=== PATIENT | male | born 1960 | race Caucasian/White ===

== ENCOUNTER 2019-07-17 16:38 | Observation (INO) | payer BC ==
[2019-07-17] MEDS ORDERED: NS 0.9% 1000 ML** 1,000 ML IV ONE (16:59)
[2019-07-17] MEDS ORDERED: Aspirin 81 mg CHEW TAB* 81 MG TAB.CHEW PO ONE (17:15)
[2019-07-17 17:20] LABS: ABS Basophils 0.1 10^3/ul (0-0.2); ABS Eosinophils 0.2 10^3/ul (0-0.6); ABS Lymphocytes 1.3 10^3/ul (1.0-4.8); ABS Neutrophils 7.8 10^3/ul (1.5-7.7); Eosinophil % 1.5 %; Hematocrit 44 % (42-52); Hemoglobin 15.1 g/dL (14.0-18.0); Lymphocyte % 12.5 %; Mean Corpuscular HGB Conc 35 g/dL (31-36); Mean Corpuscular Hemoglobin 31 pg (27-31); Mean Corpuscular Volume 89 fL (80-94); Mean Platelet Volume 9.1 fL (7.4-10.4); Platelet Count 222 10^3/uL (150-450); Red Blood Count 4.92 10^6 /uL (4.18-5.48); Red Cell Distribution Width 14 % (10-15); White Blood Count 10.4 10^3/uL (3.5-10.8)
[2019-07-17 17:38] LABS: Activated Partial Thrombo Time 36.9 seconds (26.0-38.0); Albumin 4.2 g/dL (3.2-5.2); Albumin/Globulin Ratio 1.4 (1-3); BUN/Creatinine Ratio 13.3 (8-20); Calcium 9.2 mg/dL (8.6-10.3); EGFR African American 87.2 (>60); HDL Cholesterol 38.3 mg/dL; INR 1.09 (0.82-1.09); Potassium 3.4 mmol/L (3.5-5.0); Total Bilirubin 0.4 mg/dL (0.2-1.0); Total Protein 7.2 g/dL (6.4-8.9)
[2019-07-17 18:28] LABS: Urine Appearance Clear; Urine Bilirubin Negative (Negative); Urine Blood Negative (Negative); Urine Color Yellow; Urine Glucose Negative (Negative); Urine Ketones Negative (Negative); Urine Nitrite Negative (Negative); Urine Protein Negative (Negative); Urine Specific Gravity 1.006 (1.010-1.030); Urine Urobilinogen Negative (Negative)
[2019-07-17] MEDS ORDERED: Acetaminophen TAB* 325 MG PO PRN (19:19)
[2019-07-17] MEDS ORDERED: Ondansetron INJ* 2 MG/ML VIAL IV PRN (19:19)
[2019-07-17] MEDS ORDERED: Iohexol 350* (CONTRAST) 500 ML MDV IV ONE (19:29)
[2019-07-17] MEDS ORDERED: Potassium Chlor TAB* 20 MEQ TAB.ER PO ONE (19:37)
--- NOTE | 2019-07-17 19:59 | ED ---
Throat Pain/Nasal Congestion - HPI Summary HPI Summary: 59 year old male presents to the ED with a chief complaint of sudden vision blurriness [employer], around 1530 today, 07/17/19. Patient was staring out of a window when everything became a blur. Patient tried to walk to the bathroom but did not make it in time, and suffered urinary incontinence. He denies pain, dizziness, tingling, slurred speech, drooping of face, weakness of extremities, numbness, difficulty ambulating, fever, chills, chest pain, cough, or aphasia. He states that he did not experience blackening of vision, but describes his visual disturbance as if someone was shining a bright, white light in his eyes. At present, he states that he feels that his vision has returned to baseline. PETERSON SANDERS CALLED AT 16:53. Patient has a history of HTN, DM, and HLD. FHx of DM. - History of Current Complaint Chief Complaint: EDEyeProblem Hx Obtained From: Patient Onset/Duration: Sudden Onset, Lasting Minutes, Resolved Severity: Mild Associated Signs And Symptoms: Positive: Negative Cough: None - Allergies/Home Medications Allergies/Adverse Reactions: Allergies Allergy/AdvReac Type Severity Reaction Status Date / Time No Known Allergies Allergy Verified 07/17/19 16:45 Home Medications: Home Medications Losartan TAB* 25 mg PO DAILY 07/17/19 [History Confirmed 07/18/19] Meloxicam 15 mg PO DAILY 07/17/19 [History Confirmed 07/18/19] amLODIPine TAB* 10 tab PO DAILY 07/17/19 [History Confirmed 07/18/19] Multivitamin cap PO DAILY 07/18/19 [History] National Institutes Of Health - NIH Scale Level of Consciousness: Alert/Keenly Responsive Ask Patient the Month and His/Her Age: Both Correct Ask Pt to Open/Close Eyes and Commissary Officer/Release Non-Paretic Hand: Both Correctly Best Gaze (Only Horizontal Eye Movement): Normal Visual Field Testing: No Visual Loss Facial Paresis-Pt to Smile & Close Eyes or Grimace Symmetry: Normal/Symmetrical Motor Function - Right Arm: No Drift-Holds 10 Seconds Motor Function - Left Arm: No Drift-Holds 10 Seconds Motor Function - Right Leg: No Drift-Holds 10 Seconds Motor Function - Left Leg: No Drift-Holds 10 Seconds Limb Ataxia-Must be out of Proportion to Weakness Present: Absent Sensory (Use Pinprick to Test Arms/Legs/Trunk/Face): Normal Best Language (Describe Picture, Name Items): No Aphasia Dysarthria (Read Several Words): Normal Extinction and Inattention: No Abnormality Total Score: 0 PMH/Surg Hx/FS Hx/Imm Hx Cardiovascular History: Reports: Hx Hypertension Sensory History: Denies: Hx Legally Blind, Hx Deafness Opthamlomology History: Denies: Hx Legally Blind EENT History: Denies: Hx Deafness Infectious Disease History: No Infectious Disease History: Denies: Traveled Outside the [place] in Last 30 Days - Family History Known Family History: Positive: Diabetes - Social History Alcohol Use: Weekly Alcohol Amount: 4 lite beers today Substance Use Type: Reports: None Smoking Status (MU): Never Smoked Tobacco Review of Systems Negative: Fever, Chills Positive: Blurred Vision Negative: Chest Pain Negative: Cough Positive: incontinence - urinary Musculoskeletal: Negative - extremity weakness, difficulty ambulating Neurological: Negative - face drooping, dizziness, aphasia Negative: Weakness, Numbness, Syncope, Slurred Speech All Other Systems Reviewed And Are Negative: Yes Physical Exam - Summary Physical Exam Summary: VITAL SIGNS: Reviewed. GENERAL: Patient is a well-developed and nourished male who is lying comfortable in the stretcher.Patient is not in any acute respiratory distress. HEAD AND FACE: No signs of trauma. No ecchymosis, hematomas or skull depressions. No sinus tenderness. EYES: PERRLA, EOMI x 2, No injected conjunctiva, no nystagmus. No photophobia. EARS: Hearing grossly intact. Ear canals and tympanic membranes are within normal limits. MOUTH: Oropharynx within normal limits. NECK: Supple, trachea is midline, no adenopathy, no JVD, no carotid bruit, no c- spine tenderness, neck with full ROM. No meningeal signs, no Kernig's or brudzinskis signs. CHEST: Symmetric, no tenderness at palpation. LUNGS: Clear to auscultation bilaterally. No wheezing or crackles. CVS: Regular rate and rhythm, S1 and S2 present, no murmurs or gallops appreciated. ABDOMEN: Soft, non-tender. No signs of distention. No rebound, no guarding, and no masses palpated. Bowel sounds are normal. EXTREMITIES: FROM in all major joints, no edema, no cyanosis or clubbing. NEURO: Alert and oriented x 3. No acute neurological deficits. Speech is normal and follows commands. NIH = 0 SKIN: Dry and warm. GCS: 15 Triage Information Reviewed: Yes Vital Signs On Initial Exam: Initial Vitals Temp Pulse Resp BP Pulse Ox 97.9 F 68 14 104/56 96 07/17/19 16:42 07/17/19 16:42 07/17/19 16:42 07/17/19 16:42 07/17/19 16:42 Vital Signs Reviewed: Yes - [place] Coma Scale Best Eye Response: 4 - Spontaneous Best Motor Response: 6 - Obeys Commands Best Verbal Response: 5 - Oriented Coma Scale Total: 15 Diagnostics - Vital Signs Vital Signs Temp Pulse Resp BP Pulse Ox 07/17/19 19:26 58 22 113/65 93 07/17/19 19:00 69 26 93 07/17/19 18:00 68 22 94 07/17/19 17:07 54 23 93 07/17/19 16:56 66 23 95 07/17/19 16:42 97.9 F 68 14 104/56 96 - Laboratory Lab Results: Lab Results 07/17/19 07/17/19 07/17/19 Range/Units 16:56 17:14 17:14 WBC 10.4 (3.5-10.8) 10^3/uL RBC 4.92 (4.18-5.48) 10^6 /uL Hgb 15.1 (14.0-18.0) g/dL Hct 44 (42-52) % MCV 89 (80-94) fL MCH 31 (27-31) pg MCHC 35 (31-36) g/dL RDW 14 (10-15) % Plt Count 222 (150-450) 10^3/uL MPV 9.1 (7.4-10.4) fL Neut % (Auto) 75.4 % Lymph % (Auto) 12.5 % [place] % (Auto) 10.0 % Eos % (Auto) 1.5 % Baso % (Auto) 0.6 % Absolute Neuts (auto) 7.8 H (1.5-7.7) 10^3/ul Absolute Lymphs (auto) 1.3 (1.0-4.8) 10^3/ul Absolute Monos (auto) 1.0 H (0-0.8) 10^3/ul Absolute Eos (auto) 0.2 (0-0.6) 10^3/ul Absolute Basos (auto) 0.1 (0-0.2) 10^3/ul Absolute Nucleated RBC 0.0 10^3/ul Nucleated RBC % 0.0 INR (Anticoag Therapy) 1.09 (0.82-1.09) APTT 36.9 (26.0-38.0) seconds Sodium (135-145) mmol/L Potassium (3.5-5.0) mmol/L Chloride (101-111) mmol/L Carbon Dioxide (22-32) mmol/L Anion Gap (2-11) mmol/L BUN (6-24) mg/dL Creatinine (0.67-1.17) mg/dL Est GFR ( Amer) (>60) Est GFR (Non-Af Amer) (>60) BUN/Creatinine Ratio (8-20) Glucose (70-100) mg/dL POC Glucose (mg/dL) 110 H (70-100) mg/dL Lactic Acid (0.5-2.0) mmol/L Calcium (8.6-10.3) mg/dL Total Bilirubin (0.2-1.0) mg/dL AST (13-39) U/L ALT (7-52) U/L Alkaline Phosphatase (34-104) U/L Troponin I (<0.04) ng/mL Total Protein (6.4-8.9) g/dL Albumin (3.2-5.2) g/dL Globulin (2-4) g/dL Albumin/Globulin Ratio (1-3) Triglycerides mg/dL Cholesterol mg/dL LDL Cholesterol mg/dL HDL Cholesterol mg/dL Urine Color Urine Appearance Urine pH (5-9) Ur Specific [place] (1.010-1.030) Urine Protein (Negative) Urine Ketones (Negative) Urine Blood (Negative) Urine Nitrate (Negative) Urine Bilirubin (Negative) Urine Urobilinogen (Negative) Ur Leukocyte Esterase (Negative) Urine Glucose (Negative) Serum Alcohol (<10) mg/dL 07/17/19 07/17/19 07/17/19 Range/Units 17:14 17:14 18:15 WBC (3.5-10.8) 10^3/uL RBC (4.18-5.48) 10^6 /uL Hgb (14.0-18.0) g/dL Hct (42-52) % MCV (80-94) fL MCH (27-31) pg MCHC (31-36) g/dL RDW (10-15) % Plt Count (150-450) 10^3/uL MPV (7.4-10.4) fL Neut % (Auto) % Lymph % (Auto) % [place] % (Auto) % Eos % (Auto) % Baso % (Auto) % Absolute Neuts (auto) (1.5-7.7) 10^3/ul Absolute Lymphs (auto) (1.0-4.8) 10^3/ul Absolute Monos (auto) (0-0.8) 10^3/ul Absolute Eos (auto) (0-0.6) 10^3/ul Absolute Basos (auto) (0-0.2) 10^3/ul Absolute Nucleated RBC 10^3/ul Nucleated RBC % INR (Anticoag Therapy) (0.82-1.09) APTT (26.0-38.0) seconds Sodium 134 L (135-145) mmol/L Potassium 3.4 L (3.5-5.0) mmol/L Chloride 98 L (101-111) mmol/L Carbon Dioxide 27 (22-32) mmol/L Anion Gap 9 (2-11) mmol/L BUN 14 (6-24) mg/dL Creatinine 1.05 (0.67-1.17) mg/dL Est GFR ( Amer) 87.2 (>60) Est GFR (Non-Af Amer) 72.0 (>60) BUN/Creatinine Ratio 13.3 (8-20) Glucose 116 H (70-100) mg/dL POC Glucose (mg/dL) (70-100) mg/dL Lactic Acid 2.3 H* (0.5-2.0) mmol/L Calcium 9.2 (8.6-10.3) mg/dL Total Bilirubin 0.40 (0.2-1.0) mg/dL AST 29 (13-39) U/L ALT 37 (7-52) U/L Alkaline Phosphatase 58 (34-104) U/L Troponin I 0.00 (<0.04) ng/mL Total Protein 7.2 (6.4-8.9) g/dL Albumin 4.2 (3.2-5.2) g/dL Globulin 3.0 (2-4) g/dL Albumin/Globulin Ratio 1.4 (1-3) Triglycerides 124 mg/dL Cholesterol 135 mg/dL LDL Cholesterol 72 mg/dL HDL Cholesterol 38.3 mg/dL Urine Color Yellow Urine Appearance Clear Urine pH 7.0 (5-9) Ur Specific [place] 1.006 L (1.010-1.030) Urine Protein Negative (Negative) Urine Ketones Negative (Negative) Urine Blood Negative (Negative) Urine Nitrate Negative (Negative) Urine Bilirubin Negative (Negative) Urine Urobilinogen Negative (Negative) Ur Leukocyte Esterase Negative (Negative) Urine Glucose Negative (Negative) Serum Alcohol 11 H (<10) mg/dL Result Diagrams: 07/18/19 06:47 07/18/19 06:47 Lab Statement: Any lab studies that have been ordered have been reviewed, and results considered in the medical decision making process. - Radiology CXR Radiology Interpretation Completed By: Radiologist Summary of Radiographic Findings: IMPRESSION: MILD CARDIOMEGALY. NO ACTIVE CARDIOPULMONARY DISEASE. THIS REPORT WAS REVIEWED BY DR. LUZ. - CT BRAIN CT CT Interpretation Completed By: Radiologist Summary of CT Findings: IMPRESSION: NO ACUTE INTRACRANIAL PATHOLOGY. CHRONIC SMALL VESSEL ISCHEMIC CHANGE. PRELIMINARY FINDINGS WERE DISCUSSED WITH DR. LUZ IN THE EMERGENCY DEPARTMENT AT. APPROXIMATELY 5:06 PM ON 2018.. THIS REPORT WAS REVIEWED BY DR. LUZ. - EKG 1656 Cardiac Rate: NL - RATE OF 66 BPM EKG Rhythm: Sinus Rhythm Summary of EKG Findings: EKG showed NSR with rate of 66 BPM, no ST elevations. ED physician has reviewed and interpreted this EKG. EENT Course/Dx - Course Assessment/Plan: Patient is a 59-year-old male who presents to the emergency department with a chief complaint of visual changes and urinary incontinence. Code waters was called by triage. Patient was placed in a glass carrier IV access obtained my NIH score is equal to 0 and GCS is 15. The patient reports that HIS symptoms he had prior to arrival have resolved. Head CT is negative for an acute interconnected pathology. I discussed the case with Dr. Chavez neurologist from [facility], who reports that since the patients symptoms have resolved the patient is not a candidate for TPA. However he recommends aspirin , MRI and echocardiogram. He also recommends a neurological consult. At this time I discussed my physical exam and findings with Dr. Gibson and he also recommends as above and adding and neurochecks. He also recommends for the patient to be admitted to the hospital services. At this time I discussed my physical exam and findings with and Dr. Tran from the hospitalist services who accepted the patient for admission. The patient is hemodynamically stable alert and oriented 3. Blood tests without any significant abnormality except for potassium of 3.4, glucose 116, lactic acid is 2.3. Urinalysis is negative for UTI. Patient was given potassium chloride but in [facility]. Patient is hemodynamically stable. - Diagnoses Provider Diagnoses: TIA (transient ischemic attack) - Provider Notifications Discussed Care Of Patient With: Aidan Chavez - Discussed with Dr. Scott MD, at 1705. Patient is not a candidate for TPA because he's back to normal. He encouraged a TIA workup. Time Discussed With Above Provider: 17:05 Discharge ED - Sign-Out/Discharge Documenting (check all that apply): Patient Departure - admit All imaging exams completed and their final reports reviewed: Yes Patient Received Moderate/Deep Sedation with Procedure: No - Discharge Plan Condition: Stable Disposition: ADMITTED TO [facility] - Billing Disposition and Condition Condition: STABLE Disposition: Admitted to [facility] - Attestation Statements Document Initiated by Bashir: Yes Documenting Scribe: Kalen Vasquez Provider For Whom Bashir is Documenting (Include Credential): Solomon Luz MD Scribe Attestation: IKalen, scribed for Solomon Luz MD on 07/19/19 at 1114. Scribe Documentation Reviewed: Yes Provider Attestation: The documentation as recorded by the Kalen haynes accurately reflects the service I personally performed and the decisions made by me, Solomon Luz MD Status of Scribe Document: Viewed
--- NOTE | 2019-07-17 19:59 | ED ---
Neurological HPI - History of Current Complaint Chief Complaint: EDEyeProblem Stated Complaint: "SUDDEN LOSS OF VISION PER EMS" Pain Intensity: 0 - Allergy/Home Medications Allergies/Adverse Reactions: Allergies Allergy/AdvReac Type Severity Reaction Status Date / Time No Known Allergies Allergy Verified 07/17/19 16:45 Home Medications: Home Medications Losartan TAB* 07/17/19 [History] Meloxicam 07/17/19 [History] amLODIPine TAB* 07/17/19 [History] PMH/Surg Hx/FS Hx/Imm Hx Cardiovascular History: Reports: Hx Hypertension Infectious Disease History: No Infectious Disease History: Denies: Traveled Outside the [place] in Last 30 Days - Social History Alcohol Use: Weekly Alcohol Amount: 4 lite beers today Substance Use Type: Reports: None Smoking Status (MU): Never Smoked Tobacco Physical Exam Vital Signs On Initial Exam: Initial Vitals Temp Pulse Resp BP Pulse Ox 97.9 F 68 14 104/56 96 07/17/19 16:42 07/17/19 16:42 07/17/19 16:42 07/17/19 16:42 07/17/19 16:42 Diagnostics - Vital Signs Vital Signs Temp Pulse Resp BP Pulse Ox 07/17/19 19:26 58 22 113/65 93 07/17/19 19:00 69 26 93 07/17/19 18:00 68 22 94 07/17/19 17:07 54 23 93 07/17/19 16:56 66 23 95 07/17/19 16:42 97.9 F 68 14 104/56 96 - Laboratory Lab Results: Lab Results 07/17/19 07/17/19 07/17/19 Range/Units 16:56 17:14 17:14 WBC 10.4 (3.5-10.8) 10^3/uL RBC 4.92 (4.18-5.48) 10^6 /uL Hgb 15.1 (14.0-18.0) g/dL Hct 44 (42-52) % MCV 89 (80-94) fL MCH 31 (27-31) pg MCHC 35 (31-36) g/dL RDW 14 (10-15) % Plt Count 222 (150-450) 10^3/uL MPV 9.1 (7.4-10.4) fL Neut % (Auto) 75.4 % Lymph % (Auto) 12.5 % [place] % (Auto) 10.0 % Eos % (Auto) 1.5 % Baso % (Auto) 0.6 % Absolute Neuts (auto) 7.8 H (1.5-7.7) 10^3/ul Absolute Lymphs (auto) 1.3 (1.0-4.8) 10^3/ul Absolute Monos (auto) 1.0 H (0-0.8) 10^3/ul Absolute Eos (auto) 0.2 (0-0.6) 10^3/ul Absolute Basos (auto) 0.1 (0-0.2) 10^3/ul Absolute Nucleated RBC 0.0 10^3/ul Nucleated RBC % 0.0 INR (Anticoag Therapy) 1.09 (0.82-1.09) APTT 36.9 (26.0-38.0) seconds Sodium (135-145) mmol/L Potassium (3.5-5.0) mmol/L Chloride (101-111) mmol/L Carbon Dioxide (22-32) mmol/L Anion Gap (2-11) mmol/L BUN (6-24) mg/dL Creatinine (0.67-1.17) mg/dL Est GFR ( Amer) (>60) Est GFR (Non-Af Amer) (>60) BUN/Creatinine Ratio (8-20) Glucose (70-100) mg/dL POC Glucose (mg/dL) 110 H (70-100) mg/dL Lactic Acid (0.5-2.0) mmol/L Calcium (8.6-10.3) mg/dL Total Bilirubin (0.2-1.0) mg/dL AST (13-39) U/L ALT (7-52) U/L Alkaline Phosphatase (34-104) U/L Troponin I (<0.04) ng/mL Total Protein (6.4-8.9) g/dL Albumin (3.2-5.2) g/dL Globulin (2-4) g/dL Albumin/Globulin Ratio (1-3) Triglycerides mg/dL Cholesterol mg/dL LDL Cholesterol mg/dL HDL Cholesterol mg/dL Urine Color Urine Appearance Urine pH (5-9) Ur Specific [place] (1.010-1.030) Urine Protein (Negative) Urine Ketones (Negative) Urine Blood (Negative) Urine Nitrate (Negative) Urine Bilirubin (Negative) Urine Urobilinogen (Negative) Ur Leukocyte Esterase (Negative) Urine Glucose (Negative) Serum Alcohol (<10) mg/dL 07/17/19 07/17/19 07/17/19 Range/Units 17:14 17:14 18:15 WBC (3.5-10.8) 10^3/uL RBC (4.18-5.48) 10^6 /uL Hgb (14.0-18.0) g/dL Hct (42-52) % MCV (80-94) fL MCH (27-31) pg MCHC (31-36) g/dL RDW (10-15) % Plt Count (150-450) 10^3/uL MPV (7.4-10.4) fL Neut % (Auto) % Lymph % (Auto) % [place] % (Auto) % Eos % (Auto) % Baso % (Auto) % Absolute Neuts (auto) (1.5-7.7) 10^3/ul Absolute Lymphs (auto) (1.0-4.8) 10^3/ul Absolute Monos (auto) (0-0.8) 10^3/ul Absolute Eos (auto) (0-0.6) 10^3/ul Absolute Basos (auto) (0-0.2) 10^3/ul Absolute Nucleated RBC 10^3/ul Nucleated RBC % INR (Anticoag Therapy) (0.82-1.09) APTT (26.0-38.0) seconds Sodium 134 L (135-145) mmol/L Potassium 3.4 L (3.5-5.0) mmol/L Chloride 98 L (101-111) mmol/L Carbon Dioxide 27 (22-32) mmol/L Anion Gap 9 (2-11) mmol/L BUN 14 (6-24) mg/dL Creatinine 1.05 (0.67-1.17) mg/dL Est GFR ( Amer) 87.2 (>60) Est GFR (Non-Af Amer) 72.0 (>60) BUN/Creatinine Ratio 13.3 (8-20) Glucose 116 H (70-100) mg/dL POC Glucose (mg/dL) (70-100) mg/dL Lactic Acid 2.3 H* (0.5-2.0) mmol/L Calcium 9.2 (8.6-10.3) mg/dL Total Bilirubin 0.40 (0.2-1.0) mg/dL AST 29 (13-39) U/L ALT 37 (7-52) U/L Alkaline Phosphatase 58 (34-104) U/L Troponin I 0.00 (<0.04) ng/mL Total Protein 7.2 (6.4-8.9) g/dL Albumin 4.2 (3.2-5.2) g/dL Globulin 3.0 (2-4) g/dL Albumin/Globulin Ratio 1.4 (1-3) Triglycerides 124 mg/dL Cholesterol 135 mg/dL LDL Cholesterol 72 mg/dL HDL Cholesterol 38.3 mg/dL Urine Color Yellow Urine Appearance Clear Urine pH 7.0 (5-9) Ur Specific [place] 1.006 L (1.010-1.030) Urine Protein Negative (Negative) Urine Ketones Negative (Negative) Urine Blood Negative (Negative) Urine Nitrate Negative (Negative) Urine Bilirubin Negative (Negative) Urine Urobilinogen Negative (Negative) Ur Leukocyte Esterase Negative (Negative) Urine Glucose Negative (Negative) Serum Alcohol 11 H (<10) mg/dL Result Diagrams: 07/17/19 17:14 07/17/19 17:14 Lab Statement: Any lab studies that have been ordered have been reviewed, and results considered in the medical decision making process. NIH Scale - NIH Scale Level of Consciousness: Alert/Keenly Responsive Ask Patient the Month and His/Her Age: Both Correct Ask Pt to Open/Close Eyes and Sanforizing Machine Operator/Release Non-Paretic Hand: Both Correctly Best Gaze (Only Horizontal Eye Movement): Normal Visual Field Testing: No Visual Loss Facial Paresis-Pt to Smile & Close Eyes or Grimace Symmetry: Normal/Symmetrical Motor Function - Right Arm: No Drift-Holds 10 Seconds Motor Function - Left Arm: No Drift-Holds 10 Seconds Motor Function - Right Leg: No Drift-Holds 10 Seconds Motor Function - Left Leg: No Drift-Holds 10 Seconds Limb Ataxia-Must be out of Proportion to Weakness Present: Absent Sensory (Use Pinprick to Test Arms/Legs/Trunk/Face): Normal Best Language (Describe Picture, Name Items): No Aphasia Dysarthria (Read Several Words): Normal Extinction and Inattention: No Abnormality Total Score: 0 Discharge ED - Discharge Plan Referrals: Abdon Aguillon MD [Primary Care Provider] - - Attestation Statements Document Initiated by Scribe: Yes
[2019-07-17 20:21] LABS: Activated Partial Thrombo Time 36.9 seconds (26.0-38.0); INR 1.07 (0.82-1.09)
--- NOTE | 2019-07-17 21:38 | HP ---
CC: Dr. Gibson; Dr. Cannon, [facility] * HISTORY AND PHYSICAL: DATE OF ADMISSION: 07/17/19 PRIMARY CARE PROVIDER: Dr. Cannon from [facility]. ATTENDING PHYSICIAN WHILE IN THE HOSPITAL: Dr. Maddison Shahid * (report dictated by Tristen Hernandez NP) CHIEF COMPLAINT: Visual loss. HISTORY OF PRESENT ILLNESS: Mr. Romano is a 59-year-old male patient with a history of BIGG who does not wear CPAP, history of hypertension and morbid obesity, who comes into our ER today stating that this evening he was entertaining some friends and he had had 4 to 5 beers and he noticed that his eyes started watering and then he noticed that his bilateral vision became blurry to the point where at one point it went white. He tried making it to the bathroom and he was incontinent of urine. He came out of the bathroom. He told his friends what was going on. They were concerned and called 911. He had no other focal deficits with this. He had no trouble with speech, no weakness to one side, no facial drooping, no dizziness or lightheadedness. He had no loss of consciousness. They summoned 911. By the time the ambulance got there, his symptoms were getting better and by the time he got to the hospital, his symptoms were gone. His symptoms lasted about 45 minutes. They came on suddenly and then gradually got worse again with no other focal deficits. He denied any recent medication changes and he states that prior to this, he had no chest pain or shortness of breath, and he said he had no palpitations and that he had been feeling good, but because of the visual changes, a code waters was called and there was concern for possible TIA, and we were asked to evaluate for admission. PAST MEDICAL HISTORY: Significant for: 1. Hypertension. 2. BIGG, not treated. 3. Morbid obesity. PAST SURGICAL HISTORY: He has had an appendectomy. HOME MEDICATIONS: He does not know the dosages and we will have to clarify these. 1. Meloxicam 1 tablet daily. 2. Losartan 1 tablet daily. 3. Amlodipine 1 tablet daily. ALLERGIES TO MEDICATIONS: Include no known drug allergies. FAMILY HISTORY: His mom's history is unknown. Father has a history of diabetes and melanoma. SOCIAL HISTORY: He does chew tobacco. He does have a significant other who would be his surrogate decision maker. He does drink occasionally and socially. REVIEW OF SYSTEMS: There is no documented fever. He denied having any significant weight changes. He has no double vision. He denied having any ear discharge. There is no rhinorrhea, no sore throat, no thyroid enlargement. He denies having any chest pain. There is no orthopnea. There is no nocturnal dyspnea. Denies having any abdominal pain. No dysuria. No frequency. There was no seizure. No loss of consciousness or pruritus. He had no skin ulcerations. Review of 14 systems was completed and all others are negative. PHYSICAL EXAMINATION GENERAL: At this time, Mr. Romano is a 59-year-old male patient. He is sitting on the ED stretcher. He does not appear to be in any acute distress. He is well nourished and well developed. VITAL SIGNS: Blood pressure 104/56, pulse 68, respirations 14, O2 sat 96%, temperature 97.9. HEENT: Head: Atraumatic and normocephalic. Eyes: EOMs are intact. Sclerae anicteric and not pale. Throat: Oral mucosa appears to be moist. No oropharyngeal erythema. NECK: Supple. LUNGS: Clear to auscultation bilaterally. There are no wheezes, rales, or rhonchi. HEART: Sounds S1, S2. Had a regular rate and rhythm. No murmur, rubs, or gallops. ABDOMEN: Soft, flat, nontender. Bowel sounds are present. EXTREMITIES: Pulses were 2+ throughout. He is moving all 4 extremities with 5/ 5 strength. NEUROLOGICAL: He is awake, alert, oriented x3. Speech is clear. Tongue midline. Garnishment Specialist were equal. EOMs were intact. Visual gresham were intact. He had 5/5 strength at the SCM and trapezius bilaterally. He had 5/5 strength in the upper and lower extremities distally and proximally. Reflexes were 1+ at the patella and at the brachioradialis and at the biceps. Sensation was intact. No evidence of neglect. No drift was noted. Again, no focal deficits were noted on my exam at this point. [id number] and [id number] were intact bilaterally. SKIN: Intact. DIAGNOSTIC STUDIES/LAB DATA: Labs; WBC 10.4, RBC 4.92, hemoglobin 15.1, hematocrit 44, platelet count 222. INR was 1.09, PTT of 36.9. Sodium was 134, potassium was 3.4, chloride 98, bicarb 27, BUN 14, creatinine 1.05, glucose 116 , lactic 2.3, calcium 9.2. Total bili 0.4, AST 29, ALT 37, alk phos 58. Troponin 0.00. Albumin 4.2. LDH 72. Urine was obtained, negative. Toxicology pending. He had a brain CT obtained today which revealed no acute intracranial pathology. Chronic small-vessel ischemic change. Chest x-ray showed mild cardiomegaly, no active cardiopulmonary disease. EKG showed normal sinus rhythm, rate of 66, no ST elevation, T-wave inversion noted. Old medical records reviewed. ASSESSMENT AND PLAN: Mr. Romano is a 59-year-old male who carries a history of hypertension and obstructive sleep apnea presenting to the ED today with complaints of loss of vision that eventually did get better. However, there was concern for transient ischemic attack versus possible occipital seizure. He will be admitted under inpatient status for: 1. Transient ischemic attack versus occipital seizure. At this point, his symptoms have resolved. I am going to start him on aspirin. It is odd that he had this white type vision that generally would not be seen with a transient ischemic attack; however, he does have risk factors and I think it is appropriate to get a CTA of the head and neck along with an echo. In addition to this, MRI of the brain. Start him on aspirin and we will get frequent neurological checks and place him on telemetry to monitor for atrial fibrillation. At this point, we could consider an EEG, but this could be done as an outpatient and again, I did order an MRI, echo, and CT of the head and neck with frequent neuro checks and telemetry. 2. Hypertension. I am going to be holding his antihypertensives in the setting of possible transient ischemic attack. 3. DVT prophylaxis. He will be placed on heparin subcu as he is high risk. 4. Code Status. Full code. 5. Fluids, electrolytes, and nutrition: He can have a heart-healthy diet. TIME SPENT: On the admission 60 minutes, greater than half the time was spent face- to-face with the patient obtaining my history and physical. Other half of the time was spent going over the plan of care with the patient and implementing the plan of care. I did discuss the plan of care with my attending, Dr. Shahid; she is in agreement. TRISTEN HERNANDEZ NP [id number]/[facility] #: [id number] TIANA
[2019-07-17] MEDS: Heparin VIAL(*) 5000 UNITS/ML VIAL (FIVE THOUSAND) SUBCUT SCH (22:13)
[2019-07-18] MEDS: Heparin VIAL(*) 5000 UNITS/ML VIAL (FIVE THOUSAND) SUBCUT SCH ×3 (05:57→21:23)
[2019-07-18 07:03] LABS: ABS Eosinophils 0.4 10^3/ul (0-0.6); ABS Lymphocytes 1.9 10^3/ul (1.0-4.8); ABS Monocytes 0.9 10^3/ul (0-0.8); ABS Neutrophils 4.2 10^3/ul (1.5-7.7); Eosinophil % 5.7 %; Hematocrit 43 % (42-52); Hemoglobin 14.6 g/dL (14.0-18.0); Lymphocyte % 25.1 %; Mean Corpuscular HGB Conc 34 g/dL (31-36); Mean Corpuscular Hemoglobin 30 pg (27-31); Mean Corpuscular Volume 90 fL (80-94); Mean Platelet Volume 9.6 fL (7.4-10.4); Nucleated Red Blood Cells % 0.1; Platelet Count 231 10^3/uL (150-450); Red Blood Count 4.81 10^6 /uL (4.18-5.48); Red Cell Distribution Width 15 % (10-15); White Blood Count 7.4 10^3/uL (3.5-10.8)
[2019-07-18 07:08] LABS: INR 1.09 (0.82-1.09)
[2019-07-18 07:18] LABS: BUN/Creatinine Ratio 15.2 (8-20); Calcium 8.9 mg/dL (8.6-10.3); EGFR African American 93.3 (>60); EGFR Non-African American 77.1 (>60); HDL Cholesterol 36.1 mg/dL; Potassium 3.7 mmol/L (3.5-5.0)
[2019-07-18] MEDS: Aspirin 81 mg CHEW TAB* 81 MG TAB.CHEW PO SCH (08:56)
[2019-07-18] MEDS ORDERED: Influenza VAC *QUAD* 2019-20* 0.5 ML SYRINGE IM ONE (09:00)
--- NOTE | 2019-07-18 10:31 | PN ---
Subjective Date of Service: 07/18/19 Interval History: Pt examined today at the bedside. He states that he has not had anymore symptoms. He states that he is feeling well. He denies chest pain and denies shortness of breathe. He states that he has not had any more focal deficits. He denies states he has not had any trouble with speech or facial drooping. ROS-denies fever, denies chills, denies chest pain, denies shortness of breathe , denies abdominal pain, denies nausea, denies vomiting, denies lightheadedness , denies loc, review of 14 systems completed all others negative, Objective Active Medications: Acetaminophen (Tylenol Tab*) 650 mg PO Q4H PRN PRN Reason: PAIN - MILD Aspirin (Aspirin 81 Mg Chew Tab*) 81 mg PO DAILY [facility] Last Admin: 07/18/19 08:56 Dose: 81 mg Atorvastatin Calcium (Lipitor*) 40 mg PO 1700 DC Clopidogrel Bisulfate (Plavix Tab*) 75 mg PO DAILY [facility] Heparin Sodium (Porcine) (Heparin Vial(*)) 5,000 units SUBCUT Q8HR [facility] Last Admin: 07/18/19 05:57 Dose: 5,000 units Ondansetron HCl (Zofran Inj*) 4 mg IV Q6H PRN PRN Reason: NAUSEA Vital Signs - 8 hr 07/18/19 07/18/19 03:14 07:15 Temperature 97.6 F 97.6 F Pulse Rate 52 52 Respiratory 22 16 Rate Blood Pressure 111/69 115/71 (mmHg) O2 Sat by Pulse 92 95 Oximetry Oxygen Devices in Use Now: None Appearance: well nourished well developed, Eyes: No Scleral Icterus Ears/Nose/Mouth/Throat: NL Teeth, Lips, Gums Neck: NL Appearance and Movements; NL JVP Respiratory: Symmetrical Chest Expansion and Respiratory Effort Cardiovascular: NL Sounds; No Murmurs; No JVD Abdominal: NL Sounds; No Tenderness; No Distention Skin: No Rash or Ulcers Neurological: Alert and Oriented x 3, NL Gait, NL Muscle Strength and Tone Lines/Tubes/Other Access: Clean, Dry and Intact Peripheral IV Result Diagrams: 07/18/19 06:47 07/18/19 06:47 Additional Lab and Data: Lab Results 09/28/19 09/28/19 09/28/19 Range/Units 16:56 17:14 17:14 WBC 10.4 (3.5-10.8) 10^3/uL RBC 4.92 (4.18-5.48) 10^6 /uL Hgb 15.1 (14.0-18.0) g/dL Hct 44 (42-52) % MCV 89 (80-94) fL MCH 31 (27-31) pg MCHC 35 (31-36) g/dL RDW 14 (10-15) % Plt Count 222 (150-450) 10^3/uL MPV 9.1 (7.4-10.4) fL Neut % (Auto) 75.4 % Lymph % (Auto) 12.5 % Tyler % (Auto) 10.0 % Eos % (Auto) 1.5 % Baso % (Auto) 0.6 % Absolute Neuts (auto) 7.8 H (1.5-7.7) 10^3/ul Absolute Lymphs (auto) 1.3 (1.0-4.8) 10^3/ul Absolute Monos (auto) 1.0 H (0-0.8) 10^3/ul Absolute Eos (auto) 0.2 (0-0.6) 10^3/ul Absolute Basos (auto) 0.1 (0-0.2) 10^3/ul Absolute Nucleated RBC 0.0 10^3/ul Nucleated RBC % 0.0 INR (Anticoag Therapy) 1.09 (0.82-1.09) APTT 36.9 (26.0-38.0) seconds Sodium (135-145) mmol/L Potassium (3.5-5.0) mmol/L Chloride (101-111) mmol/L Carbon Dioxide (22-32) mmol/L Anion Gap (2-11) mmol/L BUN (6-24) mg/dL Creatinine (0.67-1.17) mg/dL Est GFR ( Amer) (>60) Est GFR (Non-Af Amer) (>60) BUN/Creatinine Ratio (8-20) Glucose (70-100) mg/dL POC Glucose (mg/dL) 110 H (70-100) mg/dL Lactic Acid (0.5-2.0) mmol/L Calcium (8.6-10.3) mg/dL Total Bilirubin (0.2-1.0) mg/dL AST (13-39) U/L ALT (7-52) U/L Alkaline Phosphatase (34-104) U/L Troponin I (<0.04) ng/mL Total Protein (6.4-8.9) g/dL Albumin (3.2-5.2) g/dL Globulin (2-4) g/dL Albumin/Globulin Ratio (1-3) Triglycerides mg/dL Cholesterol mg/dL LDL Cholesterol mg/dL HDL Cholesterol mg/dL Urine Color Urine Appearance Urine pH (5-9) Ur Specific [place] (1.010-1.030) Urine Protein (Negative) Urine Ketones (Negative) Urine Blood (Negative) Urine Nitrate (Negative) Urine Bilirubin (Negative) Urine Urobilinogen (Negative) Ur Leukocyte Esterase (Negative) Urine Glucose (Negative) Serum Alcohol (<10) mg/dL 07/17/19 07/17/19 07/17/19 Range/Units 17:14 17:14 18:15 WBC (3.5-10.8) 10^3/uL RBC (4.18-5.48) 10^6 /uL Hgb (14.0-18.0) g/dL Hct (42-52) % MCV (80-94) fL MCH (27-31) pg MCHC (31-36) g/dL RDW (10-15) % Plt Count (150-450) 10^3/uL MPV (7.4-10.4) fL Neut % (Auto) % Lymph % (Auto) % Tyler % (Auto) % Eos % (Auto) % Baso % (Auto) % Absolute Neuts (auto) (1.5-7.7) 10^3/ul Absolute Lymphs (auto) (1.0-4.8) 10^3/ul Absolute Monos (auto) (0-0.8) 10^3/ul Absolute Eos (auto) (0-0.6) 10^3/ul Absolute Basos (auto) (0-0.2) 10^3/ul Absolute Nucleated RBC 10^3/ul Nucleated RBC % INR (Anticoag Therapy) (0.82-1.09) APTT (26.0-38.0) seconds Sodium 134 L (135-145) mmol/L Potassium 3.4 L (3.5-5.0) mmol/L Chloride 98 L (101-111) mmol/L Carbon Dioxide 27 (22-32) mmol/L Anion Gap 9 (2-11) mmol/L BUN 14 (6-24) mg/dL Creatinine 1.05 (0.67-1.17) mg/dL Est GFR ( Amer) 87.2 (>60) Est GFR (Non-Af Amer) 72.0 (>60) BUN/Creatinine Ratio 13.3 (8-20) Glucose 116 H (70-100) mg/dL POC Glucose (mg/dL) (70-100) mg/dL Lactic Acid 2.3 H* (0.5-2.0) mmol/L Calcium 9.2 (8.6-10.3) mg/dL Total Bilirubin 0.40 (0.2-1.0) mg/dL AST 29 (13-39) U/L ALT 37 (7-52) U/L Alkaline Phosphatase 58 (34-104) U/L Troponin I 0.00 (<0.04) ng/mL Total Protein 7.2 (6.4-8.9) g/dL Albumin 4.2 (3.2-5.2) g/dL Globulin 3.0 (2-4) g/dL Albumin/Globulin Ratio 1.4 (1-3) Triglycerides 124 mg/dL Cholesterol 135 mg/dL LDL Cholesterol 72 mg/dL HDL Cholesterol 38.3 mg/dL Urine Color Yellow Urine Appearance Clear Urine pH 7.0 (5-9) Ur Specific [place] 1.006 L (1.010-1.030) Urine Protein Negative (Negative) Urine Ketones Negative (Negative) Urine Blood Negative (Negative) Urine Nitrate Negative (Negative) Urine Bilirubin Negative (Negative) Urine Urobilinogen Negative (Negative) Ur Leukocyte Esterase Negative (Negative) Urine Glucose Negative (Negative) Serum Alcohol 11 H (<10) mg/dL Assess/Plan/Problems-Billing Assessment: 59 y/o male patient presenting to [facility] with complaints of of bilateral vision loss he was admitted for concerns of TIA - Patient Problems (1) TIA (transient ischemic attack) Current Visit: Yes Status: Acute Priority: High Comment: Echo pending CT brain shows white matter disease EEG pending MRI Pending A1c 5.7 CTA with minimal disease LDL 84 given extensive white matter disease neuro recommends asa and plavix for now and possibly 30 days depending on MRI findings. EEG pending. will place on statin for LDL < 70 goal. recommend wearing CPAP. Etiology is unclear if this represents TIA, Seizure of atypical Mirgraine. Neuro following. (2) Obesities, morbid Current Visit: Yes Status: Acute Priority: High Comment: Supportive care Follow with PCP (3) HTN (hypertension) Current Visit: Yes Status: Acute Priority: High Comment: BP stable holding meds in setting of possible TIA, BP has been stable (4) HLD (hyperlipidemia) Current Visit: Yes Status: Acute Priority: High Comment: Goal LDL less than 70 statin ordered (5) DVT prophylaxis Current Visit: Yes Status: Acute Priority: High Comment: heparin sub-q (6) Full code status Current Visit: Yes Status: Acute Priority: High Status and Disposition: Await MRI report and EEG. Given extensive white matter disease would hold for MRI tomorrow. Continue asa and plavix for now. Hold bp meds for now given concern for possible TIA. continue statin. Anticipate home tomorrow depending on MRI scan and eeg. Neuro following
[2019-07-18] MEDS: Clopidogrel TAB* 75 MG PO SCH (11:00)
[2019-07-18] MEDS ORDERED: Perflutren Lipid Microsphere* 3 ML VIAL ONE (12:55)
--- NOTE | 2019-07-18 13:40 | CONS ---
CONSULTATION REPORT: DATE OF CONSULT: 07/18/19 PATIENT OF: Tristen Hernandez NP, and Dr. Cannon. HISTORY OF PRESENT ILLNESS: This is a 59-year-old right-handed man who has a history of hypertension and morbid obesity as well as obstructive sleep apnea, but does not wear nasal CPAP. He has had no prior migrainous symptoms or headaches. He has had no prior numbness, weakness, visual changes, or other focal neurological deficits. Yesterday evening, he was entertaining some friends and had had 4 to 5 beers. He noticed that his eyes began to tear up and then, within a couple of minutes, his vision became whitened and he had trouble seeing things through it. He could see things moving, but he could not discern objects. This visual change was basically a whitening of all visual quadrants in both eyes. He was with friends at that time and was able to speak and make sense. He felt the need to go to the bathroom shortly after this began and he got up. These symptoms did not change when he got up and there was no lightheadedness. There was no weakness or feeling that his knees were buckling. His friends did not notice any facial droop. There was no dizziness and he remained completely alert and awake throughout the event. He was waiting for the bathroom when he lost control of his bladder and was incontinent of urine, but he did not have altered consciousness at this time. He had no chest pain or shortness of breath. PAST MEDICAL HISTORY: He has hypertension, obstructive sleep apnea, and untreated morbid obesity. PAST SURGICAL HISTORY: He is status post appendectomy. MEDICATIONS: He is on amlodipine, losartan, and meloxicam 1 pill each, but does not know the dosage. ALLERGIES: He has no known drug allergies. FAMILY HISTORY: The father has a history of diabetes and melanoma. His mother' s history is unknown. SOCIAL HISTORY: He chews tobacco. He drinks occasionally socially. REVIEW OF SYSTEMS: Negative in all 14 spheres, other than his gait has been affected by bilateral knee pain. PHYSICAL EXAM: On exam, temperature 97.6, pulse 52, respirations 16, blood pressure 115/71. He was alert and oriented with normal speech and comprehension. Cranial nerves II though XII were intact. Disks were sharp. Motor exam revealed normal tone, strength, and coordination. Gait was normal, other than an arthralgic gait secondary to his knee pain. Romberg's is negative. Sensation intact to light touch and position. Reflexes trace to 1. Toes were down-going. He was morbidly obese. Chest: Clear. Cardiovascular: Regular rate and rhythm. Abdomen: Soft with positive bowel sounds. DIAGNOSTIC STUDIES/LAB DATA: I reviewed his CT scan, which showed some hyperlucencies most prominent in the right occipitoparietal lobe, but also elsewhere periventricularly. His CTA head was negative. Normal CBC. Normal INR and aPTT. Normal CMP. LDL was 84. Hemoglobin A1c was 5.7. UA was negative. Toxicology serum alcohol was 11. Of note, the patient has been somewhat anxious due to a loss in his family. ASSESSMENT AND PLAN: I discussed with Eduin and his that whiteness of vision in all spheres is not a typical transient ischemic attack. In someone who had occipital lobe dysfunction due to ischemia, it would often be blackening of vision rather than whiteness of vision. Other possibilities could be that this could be some sort of migrainous phenomenon, but there is no prior history of migraine and he is on no medicines that are new that would be triggering migrainous phenomenon, but it still would be a possibility. The other possibility would be that this could be some sort of occipital seizure. Usually seizures do not arise from the occipital lobe, but they can. This lasted 45 minutes, which would have been long for a seizure. He was incontinent of urine, but he was completely awake and alert during that, so it is hard to know how this will play out. I have discussed with family that the EEG might be normal even if this were a seizure and we may be left with not knowing what this particular episode was. For now, we will have him on aspirin and Plavix. Even though this was atypical for a transient ischemic attack or stroke, it could be an ischemic event and he does have clear evidence on the CT scan for white matter disease and I think that this may show up even more on MRI scan. Depending on what the MRI scan shows whether there is anything acute or subacute that happened, we would decide whether to have him on aspirin and Plavix on an ongoing basis or just on daily aspirin. Dr. Gonzalez will be in tomorrow and will follow this up as well as the EEG that he will be having. His statin will be treated for now. He should also have nasal CPAP for his sleep apnea. I discussed the importance of weight loss and stopping his chewing of tobacco, and he should follow up with the specification manager as an outpatient. Thank you for sharing his case. [id number]/[facility] #: [id number] TIANA
[2019-07-18] MEDS: Atorvastatin* 40 MG TAB PO SCH (16:55)
[2019-07-19] MEDS: Heparin VIAL(*) 5000 UNITS/ML VIAL (FIVE THOUSAND) SUBCUT SCH ×2 (05:21→13:17)
[2019-07-19] MEDS: Aspirin 81 mg CHEW TAB* 81 MG TAB.CHEW PO SCH (07:29)
[2019-07-19] MEDS: Clopidogrel TAB* 75 MG PO SCH (07:29)
--- NOTE | 2019-07-19 10:36 | PN ---
Subjective Date of Service: 07/19/19 Length of Stay: 2 Days Neurology is following for transient episode of visual disturbance. Interval History: I reviewed the medical history in detail. Mr. 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 on 07/17/2019 with a sudden onset of bilateral visual obscuration. The patient was sitting down with friends at a [employer]. He drank 4-5 beers. He had the urgency to use the bathroom. He got up. In the process of getting up, he noticed a sudden onset of visual obscuration described as bilateral visual loss. The vision loss was described as white cloud/shade covering both eyes. He did not see any black. He denied any headache or retro-orbital pain. He denied any tinnitus, double vision, or nausea/vomiting. The symptoms slowly improved within 10 minutes, and completely resolved within 45 minutes. He denied any focal weakness or paresthesia. He did have urinary incontinence because he was having trouble making it to the bathroom due to his visual obscuration. Today, the patient is sitting in a chair comfortably in no acute distress. He is asymptomatic. He has no symptoms of headache. He is worried about recurrence of the symptoms. The patient has no history of febrile seizures or family history of epilepsy. He did have some head trauma, mostly injuring his left eye causing central visual loss. He was started on aspirin, Plavix, and high intensity atorvastatin for possible TIA. CT head without contrast showed significant white matter changes consistent with moderate small vessel disease. CTA head showed right vertebral artery stenosis (not dictated in the radiology report) with no evidence of dissection or occlusion. LDL: 84 Lactic acid: 2.3-> 1.8 hemoglobin A1c: 5.7 Review of Systems: Denied CP, SOB, or palpitations. Objective Active Medications: Acetaminophen (Tylenol Tab*) 650 mg PO Q4H PRN PRN Reason: PAIN - MILD Aspirin (Aspirin 81 Mg Chew Tab*) 81 mg PO DAILY [facility] Last Admin: 07/19/19 07:29 Dose: 81 mg Atorvastatin Calcium (Lipitor*) 40 mg PO 1700 [facility] Last Admin: 07/18/19 16:55 Dose: 40 mg Clopidogrel Bisulfate (Plavix Tab*) 75 mg PO DAILY [facility] Last Admin: 07/19/19 07:29 Dose: 75 mg Heparin Sodium (Porcine) (Heparin Vial(*)) 5,000 units SUBCUT Q8HR [facility] Last Admin: 07/19/19 05:21 Dose: 5,000 units Ondansetron HCl (Zofran Inj*) 4 mg IV Q6H PRN PRN Reason: NAUSEA Vital Signs 07/18/19 07/18/19 07/18/19 11:21 15:22 19:15 Temperature 97.8 F 98.3 F 97.7 F Pulse Rate 56 57 59 Respiratory 16 16 16 Rate Blood Pressure 117/62 120/71 138/75 (mmHg) O2 Sat by Pulse 95 94 94 Oximetry 07/18/19 07/18/19 07/19/19 20:00 23:15 03:15 Temperature 97.0 F 98.0 F Pulse Rate 56 53 Respiratory 16 20 20 Rate Blood Pressure 133/71 93/59 (mmHg) O2 Sat by Pulse 92 92 Oximetry 07/19/19 07:15 Temperature 97.3 F Pulse Rate 54 Respiratory 16 Rate Blood Pressure 123/79 (mmHg) O2 Sat by Pulse 94 Oximetry Intake and Output Last 24 Hours 07/17/19 07/18/19 07/19/19 07/20/19 06:59 06:59 06:59 06:59 Intake Total 1000 2750 360 Output Total 0 600 Balance 1000 2150 360 Weight 339 lb 14.4 oz Intake: IV Fluids 1000 Oral 0 2750 360 Output: Urine 0 600 Other: Estimated Void Medium Oxygen Devices in Use Now: None Neurology Exam: General: Well nourished, well developed, and in no acute distress. Obese man. HEENT: Normocephelic/atraumatic, sclera anicteric, mucous membranes moist Neck: Supple Chest: Clear to auscultation bilaterally Cardiovascular: Regular rate and rhythm without murmurs, rubs, gallops Extremities: No clubbing, cyanosis, or edema Neurological Findings: Awake, alert, and oriented to person, place, and time. Long and short term memory are intact. Speech: fluent without dysarthria, repetition intact Cranial Nerve: PERRL, EOM intact, VFF, no nystagmus, face symmetric bilaterally , facial sensation intact, hearing intact to finger rub bilaterally, palate elevates symmetrically, tongue midline, SCM and Trapezius s/s. Motor: s/s throughout, proximal and distal extremities x4 tone/bulk normal Sensation: intact to LT/PP bilaterally upper and lower extremities Deep Tendon Reflex: trace symmetric in the upper/lower extremities, absent at the ankles bilaterally. Babinski - down going Finger to nose, rapid alternating movements intact without tremor, no dysdiadochokinesia Gait: wide based. No ataxia. Result Diagrams: 07/18/19 06:47 07/18/19 06:47 Additional Lab and Data: Lab Results 07/17/19 07/17/19 07/17/19 Range/Units 16:56 17:14 17:14 WBC 10.4 (3.5-10.8) 10^3/uL RBC 4.92 (4.18-5.48) 10^6 /uL Hgb 15.1 (14.0-18.0) g/dL Hct 44 (42-52) % MCV 89 (80-94) fL MCH 31 (27-31) pg MCHC 35 (31-36) g/dL RDW 14 (10-15) % Plt Count 222 (150-450) 10^3/uL MPV 9.1 (7.4-10.4) fL Neut % (Auto) 75.4 % Lymph % (Auto) 12.5 % Claiborne % (Auto) 10.0 % Eos % (Auto) 1.5 % Baso % (Auto) 0.6 % Absolute Neuts (auto) 7.8 H (1.5-7.7) 10^3/ul Absolute Lymphs (auto) 1.3 (1.0-4.8) 10^3/ul Absolute Monos (auto) 1.0 H (0-0.8) 10^3/ul Absolute Eos (auto) 0.2 (0-0.6) 10^3/ul Absolute Basos (auto) 0.1 (0-0.2) 10^3/ul Absolute Nucleated RBC 0.0 10^3/ul Nucleated RBC % 0.0 INR (Anticoag Therapy) 1.09 (0.82-1.09) APTT 36.9 (26.0-38.0) seconds Sodium (135-145) mmol/L Potassium (3.5-5.0) mmol/L Chloride (101-111) mmol/L Carbon Dioxide (22-32) mmol/L Anion Gap (2-11) mmol/L BUN (6-24) mg/dL Creatinine (0.67-1.17) mg/dL Est GFR ( Amer) (>60) Est GFR (Non-Af Amer) (>60) BUN/Creatinine Ratio (8-20) Glucose (70-100) mg/dL POC Glucose (mg/dL) 110 H (70-100) mg/dL Lactic Acid (0.5-2.0) mmol/L Calcium (8.6-10.3) mg/dL Total Bilirubin (0.2-1.0) mg/dL AST (13-39) U/L ALT (7-52) U/L Alkaline Phosphatase (34-104) U/L Troponin I (<0.04) ng/mL Total Protein (6.4-8.9) g/dL Albumin (3.2-5.2) g/dL Globulin (2-4) g/dL Albumin/Globulin Ratio (1-3) Triglycerides mg/dL Cholesterol mg/dL LDL Cholesterol mg/dL HDL Cholesterol mg/dL Urine Color Urine Appearance Urine pH (5-9) Ur Specific Crosby (1.010-1.030) Urine Protein (Negative) Urine Ketones (Negative) Urine Blood (Negative) Urine Nitrate (Negative) Urine Bilirubin (Negative) Urine Urobilinogen (Negative) Ur Leukocyte Esterase (Negative) Urine Glucose (Negative) Serum Alcohol (<10) mg/dL 07/17/19 07/17/19 07/17/19 Range/Units 17:14 17:14 18:15 WBC (3.5-10.8) 10^3/uL RBC (4.18-5.48) 10^6 /uL Hgb (14.0-18.0) g/dL Hct (42-52) % MCV (80-94) fL MCH (27-31) pg MCHC (31-36) g/dL RDW (10-15) % Plt Count (150-450) 10^3/uL MPV (7.4-10.4) fL Neut % (Auto) % Lymph % (Auto) % Claiborne % (Auto) % Eos % (Auto) % Baso % (Auto) % Absolute Neuts (auto) (1.5-7.7) 10^3/ul Absolute Lymphs (auto) (1.0-4.8) 10^3/ul Absolute Monos (auto) (0-0.8) 10^3/ul Absolute Eos (auto) (0-0.6) 10^3/ul Absolute Basos (auto) (0-0.2) 10^3/ul Absolute Nucleated RBC 10^3/ul Nucleated RBC % INR (Anticoag Therapy) (0.82-1.09) APTT (26.0-38.0) seconds Sodium 134 L (135-145) mmol/L Potassium 3.4 L (3.5-5.0) mmol/L Chloride 98 L (101-111) mmol/L Carbon Dioxide 27 (22-32) mmol/L Anion Gap 9 (2-11) mmol/L BUN 14 (6-24) mg/dL Creatinine 1.05 (0.67-1.17) mg/dL Est GFR ( Amer) 87.2 (>60) Est GFR (Non-Af Amer) 72.0 (>60) BUN/Creatinine Ratio 13.3 (8-20) Glucose 116 H (70-100) mg/dL POC Glucose (mg/dL) (70-100) mg/dL Lactic Acid 2.3 H* (0.5-2.0) mmol/L Calcium 9.2 (8.6-10.3) mg/dL Total Bilirubin 0.40 (0.2-1.0) mg/dL AST 29 (13-39) U/L ALT 37 (7-52) U/L Alkaline Phosphatase 58 (34-104) U/L Troponin I 0.00 (<0.04) ng/mL Total Protein 7.2 (6.4-8.9) g/dL Albumin 4.2 (3.2-5.2) g/dL Globulin 3.0 (2-4) g/dL Albumin/Globulin Ratio 1.4 (1-3) Triglycerides 124 mg/dL Cholesterol 135 mg/dL LDL Cholesterol 72 mg/dL HDL Cholesterol 38.3 mg/dL Urine Color Yellow Urine Appearance Clear Urine pH 7.0 (5-9) Ur Specific Crosby 1.006 L (1.010-1.030) Urine Protein Negative (Negative) Urine Ketones Negative (Negative) Urine Blood Negative (Negative) Urine Nitrate Negative (Negative) Urine Bilirubin Negative (Negative) Urine Urobilinogen Negative (Negative) Ur Leukocyte Esterase Negative (Negative) Urine Glucose Negative (Negative) Serum Alcohol 11 H (<10) mg/dL Assessment/Plan Mr. Eduin Romano is a 59-year-old man with history significant for BIGG not on CPAP, who presented with sudden, transient episode of visual disturbance. 1. Acute, transient, bilateral visual disturbance of unclear etiology- resolved. Symptoms lasted for 10-45 minutes. There was no clear associated symptoms except for urinary incontinence after consuming 4-5 beers and inability to ambulate due to his vision loss. - The symptoms are consistent with a positive phenomenon of "white" cloud like visual obscuration. There was no double vision, retroorbital pain, tinnitus, or nausea/vomiting to suggest a posterior circulation infarction. It's unlikely he can develop bilateral retinal disease that is transient at the same time. Plus the described color would be typically black (negative phenomenon). - Differential diagnosis should include a systemic problem such as hypoxia, arrhythmia, or orthostatic hypotension (symptoms occurred during standing after drinking alcohol which has a diuretic effect). - He is on DAPT and statin therapy started by the primary team and Dr. Gibson for possible TIA. - Pending EEG to evaluate for occipital lobe discharges (less likely) - Pending MRI brain without contrast to evaluate for stroke (less likely) - He is at risk for idiopathic intracranial hypertension but he has no headaches so this is unlikely. - He needs an outpatient ophthalmology assessment. - He should not be driving until cleared by ophthalmology or neurology as an outpatient. - NIHSS now is 0. - The exact etiology may not be found. Follow-up with [facility]rology in 6-8 weeks. Time spent: I spent a total of 45 minutes of which more than 50% was spent by obtaining history, examining the patient, physical and examination, education and counseling, and discussing the treatment plan as mentioned above.
[2019-07-19 12:00] LABS: Urine Appearance Clear; Urine Bilirubin Negative (Negative); Urine Blood Negative (Negative); Urine Color Yellow; Urine Glucose Negative (Negative); Urine Ketones Negative (Negative); Urine Nitrite Negative (Negative); Urine Protein Negative (Negative); Urine Specific Gravity 1.016 (1.010-1.030); Urine Urobilinogen Negative (Negative)
[2019-07-19 12:42] LABS: C Reactive Protein 5.44 mg/L (<8.01)
[2019-07-19 13:49] LABS: TSH (Thyroid Stimulating Horm) 1.64 mcIU/mL (0.34-5.60)
[2019-07-19] MEDS: Atorvastatin* 40 MG TAB PO SCH (16:27)
[2019-07-19 16:36] VITALS: BP 145/91
--- NOTE | 2019-07-19 20:12 | EEG ---
ELECTROENCEPHALOGRAPHY: DATE OF STUDY: 07/19/19 - ROOM #446 DATE READ: 07/19/19 ORDERED BY: Tristen Hernandez NP. CLINICAL PROBLEM: Mr. Eduin Romano is a 59-year-old obese man who had symptoms of visual disturbance, whitening of the vision, and trouble seeing on both eyes. This EEG was obtained to evaluate for epileptiform abnormalities or electrographic seizures. DURATION OF THE RECORDIN - 1618. MEDICATIONS: 1. Aspirin. 2. Plavix. 3. Heparin. 4. Lipitor. 5. Tylenol. 6. Zofran. CLINICAL STATE: Awake and sleep. REPORT: The waking background showed appropriate organization with clearly defined anterior-posterior voltage and frequency gradients. There was a well- defined posterior dominant rhythm of 12 Hz, which was symmetrical and showed normal reactivity. Anteriorly, there was an expected pattern of lower voltage, irregular, mixed faster frequency. Attenuation of the occipital rhythm accompanied drowsiness. The sleep background was appropriately organized with well developed spindles and vertex waves. Deep sleep transit showed appropriate morphology and are bilaterally synchronous and symmetrical. Hyperventilation and photic stimulation were not performed. EKG showed normal sinus rhythm. CLINICAL IMPRESSION: This is a normal awake and sleep EEG. There were no epileptiform discharges or electrographic seizures. [id number]/[facility] #: [id number] [facility]
--- NOTE | 2019-07-19 22:46 | DS ---
CC: Dr. Cannon, [facility]; Dr. Devyn Gibson * DISCHARGE SUMMARY: DATE OF ADMISSION: 07/17/19 DATE OF DISCHARGE: 07/19/19 PRIMARY CARE PROVIDER: Dr. Cannon of [facility]. CONSULTING NEUROLOGIST: Dr. Devyn Gibson. MY ATTENDING WHILE IN THE HOSPITAL: Dr. Heather Patten.* (DICTATED BY HEVER LOGAN) PRIMARY DISCHARGE DIAGNOSIS: Temporary vision loss, unknown cause, possible transient ischemic attack. SECONDARY DISCHARGE DIAGNOSES: 1. Hypertension. 2. Obstructive sleep apnea. 3. Morbid obesity. STUDIES DONE WHILE IN THE HOSPITAL: Brain CT from 07/17/19 read as no acute intracranial abnormalities, chronic small vessel ischemic change. Chest x-ray from 07/17/19 read as mild cardiomegaly, no active cardiopulmonary disease. Head CTA from 07/17/19 read as impression: No dissection, aneurysm, or flow limiting lesion. Echocardiogram read as cardiac size is normal, wall thickness is mildly increased, ejection fraction 55% to 60%, no significant diastolic dysfunction, right ventricle is mildly dilated, systolic function is normal, left atrium is mildly dilated, right atrium is mildly dilated, trace mitral regurgitation, trace tricuspid regurgitation. Brain MRI shows no acute infarct. MEDICATIONS AT DISCHARGE: 1. Losartan 25 mg p.o. daily. 2. Amlodipine 10 mg p.o. daily. 3. Meloxicam 15 mg p.o. daily. 4. Multivitamin 1 tablet p.o. daily. 5. Tylenol 650 mg p.o. q.4 hours as needed. 6. Aspirin 81 mg p.o. daily. 7. Lipitor 40 mg p.o. daily. 8. Clopidogrel 75 mg p.o. daily. New medications on discharge: 1. Tylenol. 2. Aspirin. 3. Lipitor. 4. Clopidogrel. Medications discontinued on discharge: None. HOSPITAL COURSE: This is a brief summary of the patient's presentation. For more details, please see the history and physical from Tristen Hernandez NP, on . In brief, the patient is a 59-year-old male with past medical history significant for the above who presented to the emergency department after approximately 15 to 45 minutes of bilateral vision becoming blurry and white in both eyes. He was incontinent of urine, but he had approximately 4 to 5 beers before this time. The patient's friend called 911 and he was brought into the emergency department. He had no other neurologic deficits. He had no other neurologic deficits throughout his hospital course. He had no arrhythmias, no vital sign abnormalities except for 1 low blood pressure reading. The patient had no temperatures. The patient does not feel that he was dehydrated, but had been drinking. The patient has never had anything like this before. The patient was seen in consultation by Dr. Devyn Gibson of Neurology, who recommended treating this as if it was a TIA, but also ordered EEG and MRI, the cause of the patient's episode is unclear pending patient's negative MRI. The patient is stable and amenable for discharge to home on 07/19/19. PHYSICAL EXAM ON THE DAY OF DISCHARGE: General: The patient is a 59-year-old male who appears stated age and sitting comfortably in the bed, in no acute distress. Vital Signs: At the time of evaluation, temperature 97.1, pulse rate 86, respiratory rate 20, oxygen saturation 95% on room air, blood pressure 145/ 91. HEENT: Head normocephalic, atraumatic. Sclerae anicteric. No conjunctival injection. Nasal mucosa moist. Oral mucosa moist. No pharyngeal erythema, discharge, or exudate. Neck: Supple, nontender. No lymphadenopathy. No carotid bruits auscultated. No JVD. Cardiac: Regular rate and rhythm. No clicks, murmurs, gallops, or rubs. Pulses are 2+ in the bilateral dorsalis pedis, posterior tibialis, and radial areas. Respiratory: Clear to auscultation bilaterally. No wheezes, rales, or rhonchi. Good air exchange bilaterally. Abdomen: Soft, nontender, nondistended. Bowel sounds present and normoactive in all 4 quadrants. No hepatosplenomegaly. No abdominal bruits auscultated. No hepatojugular reflux. Genitourinary: No suprapubic or CVA tenderness. Skin: Clean, dry, and intact. No rash. Neuro: Cranial nerves II through XII intact. No focal deficits. Alert and oriented x3. Psychiatric: Pleasant and cooperative. DISCHARGE PLAN BY PROBLEM: 1. Vision alteration. The differential for the patient's vision alteration remains broad. The patient will be treated for TIA. The patient had an EEG which is read as normal awake and drowsy EEG. The patient had no other findings on his brain imaging except for possible small vessel ischemic change. The patient had a slightly elevated LDL cholesterol. He was started on a statin as above. The patient had negative B12, TSH, and negative CRP. The patient had slightly elevated lactic acid on admission bringing up the possibility this was related to orthostatic hypotension. The patient's lactic acid normalized. The patient had slightly elevated hemoglobin A1c at 5.7 in the prediabetic range. The patient should follow up with primary care provider within 1 week for general medical management to assess the appropriateness for this antihypertensive therapy and to ensure he is tolerating Plavix and aspirin. The patient should follow up with neurologist in 4 to 6 weeks. It is also quite possible that the patient had episode of hypoxia or hypercapnia. The patient should not drive until he is cleared by his outpatient neurologist, he is to follow up in 1 month. The patient should follow up with Dr. Devyn Gibson within 1 month. The patient will be continued on aspirin and Plavix for 30 days and then go to aspirin monotherapy. The patient has been started on Lipitor 40 mg daily. The patient will follow up with his primary care provider to assess whether or not he is tolerating the medication 2. Obstructive sleep apnea. The patient is currently untreated. The patient has not yet picked up his CPAP, but had a sleep study that qualified him for it. The patient should do this as soon as possible through his primary care provider. 3. Hypertension. The patient's blood pressure was very well controlled while in the hospital. Continue the patient's home medication regimen. DISPOSITION: Home. CONDITION: Stable. TIME SPENT: Approximately 60 minutes was spent on the discharge of this patient , 30 of which was spent [id number] with the patient obtaining history and physical and discussing treatment plan. HEVER LOGAN [id number]/[facility] #: [id number] TIA[facility]
[2019-07-22 12:49] LABS: Adulterants Comment Normal; Creatinine, Urine 115.8 mg/dL; Fentanyl, Ur Not Detected ng/mL (Cutoff: 2); Hydrocodone, Ur Not Detected ng/mL (Cutoff: 25); Hydromorphone, Ur Not Detected ng/mL (Cutoff: 25); Morphine, Ur Not Detected ng/mL (Cutoff: 25); Norfentanyl, Ur Not Detected ng/mL (Cutoff: 2); Norhydrocodone, Ur Not Detected ng/mL (Cutoff: 25); Noroxycodone, Ur Not Detected ng/mL (Cutoff: 25); Oxycodone, Ur Not Detected ng/mL (Cutoff: 25); Tramadol, Ur Not Detected ng/mL (Cutoff: 25); Urine Barbiturates Negative; Urine Benzodiazepines Negative; Urine Cocaine Negative; Urine Phencyclidine Negative ng/mL (Cutoff: 25); Urine Tetrahydrocannabinol Negative ng/mL (Cutoff: 50)
== END 2019-07-19 22:10 | disposition home or self-care (01) ==
LOC: ED 16:38 → MEDTELE 19:11
PROVIDERS: ADMIT Internal Medicine; ATTEND Internal Medicine
DX: H54.7 Unspecified visual loss (principal); I10 Essential (primary) hypertension; G47.33 Obstructive sleep apnea (adult) (pediatric); E66.01 Morbid (severe) obesity due to excess calories; Z79.899 Other long term (current) drug therapy; Z79.82 Long term (current) use of aspirin; R94.31 Abnormal electrocardiogram [ECG] [EKG]
CPT/HCPCS: 36415; 70450; 70496; 70498; 70551; 71045; 80048; 80053; 80061; 80307; 80320; 80364; 81003; 82607; 83036; 83605; 84443; 84484; 85025; 85610; 85652; 85730; 86140; 90471; 90686; 93005; 93306; 95819; 96360; 96361; 96372; 99285; A9270-GY; C8929; G0008; G0378; G0480; J1644; Q9967